=== PATIENT | male | born 1985 | race Caucasian/White ===

== ENCOUNTER 2017-10-02 07:55 | Emergency (ER) | payer SELFPAY ==
[2017-10-02 08:11] VITALS: BMI 32.1
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
[2017-10-02 13:16] VITALS: BP 129/60; PULSE 105; TEMP 99.8
== END 2017-10-02 13:16 | disposition home or self-care (01) ==
LOC: JER 07:55
PROC: 2W3QX1Z Immobilization of Right Lower Leg using Splint (ICD-10-PCS; principal; 2017-10-02)
DX: S82.51XA Displaced fracture of medial malleolus of right tibia, initial encounter for closed fracture (principal); S82.421A Displaced transverse fracture of shaft of right fibula, initial encounter for closed fracture; Y04.0XXA Assault by unarmed brawl or fight, initial encounter; Y93.89 Activity, other specified; Y92.89 Other specified places as the place of occurrence of the external cause; Y99.8 Other external cause status; F10.120 Alcohol abuse with intoxication, uncomplicated; Y90.9 Presence of alcohol in blood, level not specified
CPT/HCPCS: 73560-TC-RT; 73590-TC-RT; 73610-TC-RT; 73630-TC-RT; 99282-25